=== PATIENT | female | born 1940 | race Caucasian/White ===

== ENCOUNTER 2024-03-05 05:25 | Day surgery (SDC) | payer OTHER ==
[~2024-03-05] VITALS: Ht 160 cm; Wt 77.1 kg
[2024-03-05] MEDS ORDERED: oxyCODONE HCL 10 MG TAB.ER.12H PO ONE ×2 (05:39→06:00)
[2024-03-05] MEDS ORDERED: ACETAMINOPHEN 500 MG TABLET PO ONE (06:00)
[2024-03-05 06:52] VITALS: PULSE 61; RESP 18; TEMP 97.7; O2SAT 96
[2024-03-05] MEDS ORDERED: CEFAZOLIN 2 GM IVPB PREMIX 50 ML IV ONE (07:00)
[2024-03-05] MEDS: ACETAMINOPHEN 500 MG TABLET ONE (07:09)
[2024-03-05] MEDS ORDERED: PROPOFOL DRIP 100 ML IV ONE (07:17)
[2024-03-05] MEDS ORDERED: ePHEDrine sulfate 50 MG/ML VIAL ONE (07:21)
[2024-03-05] MEDS ORDERED: ONDANSETRON HCL 4 MG/2 ML VIAL IVP PRN (08:15)
[2024-03-05] MEDS ORDERED: fentaNYL CITRATE/PF 100 MCG/2 ML AMP IVP PRN (08:15)
[2024-03-05] MEDS ORDERED: LR 1,000 ML IV ONE (08:15)
[2024-03-05] MEDS ORDERED: HYDROmorphone 1 MG/ML INJ. CARTRIDGE IVP PRN (08:15)
[2024-03-05 09:12] VITALS: BP_SYST 138
[2024-03-05] MEDS ORDERED: fentaNYL CITRATE/PF 100 MCG/2 ML AMP ONE (13:06)
[2024-03-05] MEDS: fentaNYL CITRATE/PF 100 MCG/2 ML AMP IVP PRN (13:09)
[2024-03-05] MEDS ORDERED: CEFEPIME 2 GM in D5W 100 ML IV SCH (15:00)
== END 2024-03-05 15:15 | disposition home or self-care (01) ==
LOC: SMU 05:25 → SDS 05:25
PROVIDERS: ATTEND Orthopaedic Surgery Sports Medicine
DX: M17.12 Unilateral primary osteoarthritis, left knee (principal); G89.29 Other chronic pain; M25.562 Pain in left knee; I12.9 Hypertensive chronic kidney disease with stage 1 through stage 4 chronic kidney disease, or unspecified chronic kidney disease; N18.30 Chronic kidney disease, stage 3 unspecified; K21.9 Gastro-esophageal reflux disease without esophagitis; E78.5 Hyperlipidemia, unspecified; E66.3 Overweight; Z90.89 Acquired absence of other organs; Z79.82 Long term (current) use of aspirin; Z79.899 Other long term (current) drug therapy; Z68.30 Body mass index [BMI] 30.0-30.9, adult
CPT/HCPCS: 87081; 27447; 97162; 64447; 93005; 73560; 97110; 97530; 97116; 88305; 88311; J0690; J0171; J2405; J2704; J3370; J3010; J3490; J7060; J7120; C1776 ×3; J0692